=== PATIENT | male | born 1965 | race Caucasian/White ===

== ENCOUNTER 2020-11-03 06:42 | Day surgery (SDC) | payer BC ==
[2020-11-02 11:44] VITALS: BMI 25.0
[2020-11-03] MEDS ORDERED: AFRIN NASAL MIST 15 ML BOT ONE ×2 (08:14→08:41)
[2020-11-03] MEDS ORDERED: Lidocaine 1% w/Epinephrine 1:100K 20 ML VIAL ONE (08:41)
[2020-11-03] MEDS ORDERED: Bacitracin Zinc Ointment 30 gm TUBE ONE (08:41)
[2020-11-03] MEDS ORDERED: Dexmedetomidine 200 MCG/2 ML VIAL ONE (08:45)
[2020-11-03] MEDS ORDERED: Fentanyl 100 MCG/2 ML VIAL ONE ×2 (08:45→09:50)
[2020-11-03] MEDS ORDERED: PROPOFOL 200 MG/20 ML VIAL ONE (08:51)
[2020-11-03] MEDS ORDERED: Dexamethasone 20 MG/5 ML VIAL ONE (08:51)
[2020-11-03] MEDS ORDERED: Ondansetron PF 4 MG/2 ML Vial ONE (08:51)
[2020-11-03] MEDS ORDERED: Succinylcholine 200 MG/10 ml SYRINGE FS ONE (08:51)
[2020-11-03] MEDS ORDERED: Lidocaine 1% PF 5 ML VIAL ONE (08:51)
[2020-11-03] MEDS ORDERED: methylPREDNISolone Acetate 40 mg/ml Vial ONE (08:58)
[2020-11-03] MEDS ORDERED: Meperidine HCl/PF 25 MG/ML VIAL ONE (09:36)
[2020-11-03] MEDS ORDERED: diphenhydrAMINE 50 MG/ML VIAL ONE (11:00)
== END 2020-11-03 12:55 | disposition home or self-care (01) ==
LOC: SDC 06:42
PROVIDERS: ATTEND Otolaryngology Plastic Surgery within the Head & Neck
PROC: 0CTNXZZ Resection of Uvula, External Approach (ICD-10-PCS; principal; 2020-11-03)
PROC: 0CTQXZZ Resection of Adenoids, External Approach (ICD-10-PCS; principal; 2020-11-03)
PROC: 0CTPXZZ Resection of Tonsils, External Approach (ICD-10-PCS; principal; 2020-11-03)
PROC: 09SM0ZZ Reposition Nasal Septum, Open Approach (ICD-10-PCS; principal; 2020-11-03)
PROC: 09TL8ZZ Resection of Nasal Turbinate, Via Natural or Artificial Opening Endoscopic (ICD-10-PCS; principal; 2020-11-03)
DX: J35.03 Chronic tonsillitis and adenoiditis (principal); J34.2 Deviated nasal septum; J34.3 Hypertrophy of nasal turbinates; J34.89 Other specified disorders of nose and nasal sinuses; K13.79 Other lesions of oral mucosa; J30.9 Allergic rhinitis, unspecified; I10 Essential (primary) hypertension; E78.5 Hyperlipidemia, unspecified; G47.33 Obstructive sleep apnea (adult) (pediatric); F12.90 Cannabis use, unspecified, uncomplicated; Z79.899 Other long term (current) drug therapy; Z87.891 Personal history of nicotine dependence; Z88.8 Allergy status to other drugs, medicaments and biological substances
CPT/HCPCS: 88304; 93005; 93010; J1100; J1200; J2175; J2405; J2704; J2920; J3010